=== PATIENT | female | born 1950 | race Caucasian/White ===

== ENCOUNTER → 2016-11-10 | Outpatient (CLI) | payer MEDICARE ==
--- NOTE | 2016-11-10 16:31 | US ---
EXAMINATION TYPE: US pelvic limited DATE OF EXAM: 11/10/2016 4:00 PM COMPARISON: NONE CLINICAL HISTORY: R35.0 Frequency of urination. Patient stated had prior bladder suspension. Order is for post void bladder volume. Bladder: wnl and bilateral ureteral jets were seen Post Void Bladder Volume: wnl as is < 50ml. IMPRESSION: NORMAL EXAMINATION.
== END | disposition home or self-care (01) ==
LOC: RADUSWWP 15:25
PROVIDERS: ATTEND Family Medicine
DX: R35.0 Frequency of micturition (principal)
CPT/HCPCS: 76857

== ENCOUNTER → 2016-11-19 | Outpatient (CLI) | payer MEDICARE ==
--- NOTE | 2016-11-20 13:18 | MM ---
Reason for exam: screening (asymptomatic). Last mammogram was performed 3 years and 2 months ago. History: Patient is postmenopausal. Family history of breast cancer in sister at age 55. Physical Findings: A clinical breast exam by your physician is recommended on an annual basis and results should be correlated with mammographic findings. MG Screening Mammo w CAD Bilateral CC and MLO view(s) were taken. Prior study comparison: September 13, 2013, bilateral digital screening mammo w/CAD. August 12, 2012, bilateral digital screening mammo w/CAD. There are scattered fibroglandular densities. There is no discrete abnormality. No significant changes when compared with prior studies. ASSESSMENT: Negative, BI-RAD 1 RECOMMENDATION: Routine screening mammogram of both breasts in 1 year.
== END | disposition home or self-care (01) ==
LOC: RADMAMWWP 13:10
PROVIDERS: ATTEND Family Medicine
DX: Z12.31 Encounter for screening mammogram for malignant neoplasm of breast (principal)

== ENCOUNTER → 2016-12-10 | Outpatient (CLI) | payer MEDICARE ==
[2016-12-10 13:59] LABS: Non-African American GFR(MDRD) >60 (>60 ml/min/1.73 sqM)
--- NOTE | 2016-12-10 21:45 | MR ---
EXAMINATION TYPE: MR brain wo/w con DATE OF EXAM: 12/10/2016 COMPARISON: NONE HISTORY: Loss of scent/taste TECHNIQUE: Multiplanar, multisequence images of the brain and brainstem is performed without and with IV contras t, utilizing 15 mL intravenous MultiHance . FINDINGS: Diffusion weighted images demonstrate no evidence of a recent infarct or other diffusion ab normality. There is no extra-axial fluid collection or significant white matter signal abnormality. Pituitary gland measures 7 mm in craniocaudal dimension but demonstrates abnormal enhancement suggest melina of a pituitary adenoma. There is no mass effect upon the optic chiasm or suprasellar extension. There is small cortical area of abnormal density in the right frontal parietal white matter is nonspe cific but likely in the basis small focal area of ischemia. Approximately 5 focal areas of abnormal signal in the white matter which are nondisplaced thickening. Changes of chronic sinusitis noted. Craniocervical junction maintained. There is abnormal enhancement involving the left cerebellopontine angle measuring 1.5 x 0.9 cm. IMPRESSION: 1. Pituitary gland measures demonstrates heterogeneous and abnormal enhancement suggestive of a pitui tary adenoma measuring approximately 11 x 9 mm. No suprasellar extension. 2. 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 Differential diagnosis would include a schwan noma or meningioma. Schwannoma with intracanalicular extension favored. 3. Nonspecific white matter changes most typical remote microvascular ischemia.
== END | disposition home or self-care (01) ==
LOC: RADMRIMAIN 13:41
PROVIDERS: ATTEND Otolaryngology
DX: G93.89 Other specified disorders of brain (principal); R90.82 White matter disease, unspecified; R93.0 Abnormal findings on diagnostic imaging of skull and head, not elsewhere classified; R43.9 Unspecified disturbances of smell and taste
CPT/HCPCS: 70553; 82565

== ENCOUNTER 2017-07-02 23:50 | Emergency (ER) | payer MEDICARE ==
[2017-07-02 23:56] VITALS: RESP 18
--- NOTE | 2017-07-03 00:32 | ED ---
URI HPI - General Chief Complaint: Upper Respiratory Infection Stated Complaint: Cough/Congestion Time Seen by Provider: 07/03/17 00:00 Source: patient, RN notes reviewed Mode of arrival: ambulatory Limitations: no limitations - History of Present Illness Initial Comments: This is a 66-year-old female who presents with complains of cold symptoms for the past week she's had no fevers no chills possibly some sweats she has a cough with yellow phlegm rhinorrhea she has a sore throat from coughing so hard. No overt chest pain no nausea vomiting or other symptoms report. MD Complaint: cough, rhinorrhea, nasal congestion - Related Data Previous Rx's Medication Instructions Recorded Albuterol Inhaler [Ventolin Hfa 2 puff INHALATION Q6HR PRN #1 07/03/17 Inhaler] inhaler Ciprofloxacin HCl [Cipro] 500 mg PO Q12HR #20 tablet 07/03/17 predniSONE 20 mg PO BID #10 tab 07/03/17 Allergies Allergy/AdvReac Type Severity Reaction Status Date / Time No Known Allergies Allergy Verified 07/02/17 23:51 Review of Systems ROS Statement: Those systems with pertinent positive or pertinent negative responses have been documented in the HPI. ROS Other: All systems not noted in ROS Statement are negative. Past Medical History Past Medical History: No Reported History History of Any Multi-Drug Resistant Organisms: None Reported Past Surgical History: Hysterectomy Additional Past Surgical History / Comment(s): bladder suspension Past Psychological History: No Psychological Hx Reported Smoking Status: Never smoker Past Alcohol Use History: Occasional Past Drug Use History: None Reported General Exam - General Exam Comments Initial Comments: This is a well-developed well-nourished awake alert oriented 3 female Limitations: no limitations General appearance: alert, in no apparent distress Head exam: Present: atraumatic, normocephalic, normal inspection Eye exam: Present: normal appearance, PERRL, EOMI. Absent: scleral icterus, conjunctival injection, periorbital swelling ENT exam: Present: other (Boggy swollen nasal mucosa with some clear drainage seen. TMs are within normal limits oropharynx is clear) Neck exam: Present: normal inspection, full ROM, other (No stridor JVD or bruits ). Absent: tenderness, meningismus, lymphadenopathy Respiratory exam: Present: normal lung sounds bilaterally. Absent: respiratory distress, wheezes, rales, rhonchi, stridor Cardiovascular Exam: Present: regular rate, normal rhythm, normal heart sounds. Absent: systolic murmur, diastolic murmur, rubs, gallop, clicks GI/Abdominal exam: Present: soft, normal bowel sounds. Absent: distended, tenderness, guarding, rebound, rigid Extremities exam: Present: normal inspection, full ROM, normal capillary refill. Absent: tenderness, pedal edema, joint swelling, calf tenderness Back exam: Present: normal inspection Neurological exam: Present: alert, oriented X3, CN II-XII intact Psychiatric exam: Present: normal affect, normal mood Skin exam: Present: warm, dry, intact, normal color. Absent: rash Course Vital Signs 07/02/17 07/03/17 23:51 00:40 Temperature 99.8 F H Pulse Rate 83 Respiratory 18 18 Rate Blood Pressure 140/87 O2 Sat by Pulse 94 L Oximetry Medical Decision Making - Medical Decision Making I did discuss findings with patient family members. The presentation is consistent with tracheobronchitis and by history intermittent bronchospasm. Patient will be placed on appropriate medication she'll be placed on an antibiotic as well as steroid exam an inhaler prescription will be also given to the patient. - Lab Data Lab Results 07/03/17 Range/Units 00:29 Influenza Type A RNA Not Detected (Not Detectd) Influenza Type B (PCR) Not Detected (Not Detectd) - Radiology Data Radiology results: report reviewed (I did review the imaging and reports no acute findings.), image reviewed Disposition Clinical Impression: Tracheobronchitis, Febrile illness, acute, Bronchospasm Disposition: HOME SELF-CARE Condition: Good Instructions: Acute Bronchitis (ED), Bronchospasm (ED) Prescriptions: Albuterol Inhaler [Ventolin Hfa Inhaler] 2 puff INHALATION Q6HR PRN #1 inhaler PRN Reason: Dyspnea Ciprofloxacin HCl [Cipro] 500 mg PO Q12HR #20 tablet predniSONE 20 mg PO BID #10 tab Referrals: Tutu Kay DO [Primary Care Provider] - 1-2 days
--- NOTE | 2017-07-03 00:54 | XR ---
EXAMINATION TYPE: XR chest 2V DATE OF EXAM: 07/03/2017 COMPARISON: NONE HISTORY: Cough TECHNIQUE: Frontal and lateral views of the chest are obtained. FINDINGS: Heart is normal. Lungs are clear. There is no heart failure. There is no pleural effusion. Bony thorax is intact. IMPRESSION: No active cardiopulmonary disease.
[2017-07-03] MEDS ORDERED: CIPROFLOXACIN HCL 500 MG TAB PO STA (01:01)
[2017-07-03] MEDS ORDERED: predniSONE 50 MG TAB PO STA (01:01)
[2017-07-03 01:19] VITALS: BP 143/80; PULSE 82; TEMP 99
== END 2017-07-03 01:19 | disposition home or self-care (01) ==
LOC: EC 23:50
DX: J40 Bronchitis, not specified as acute or chronic (principal); J98.01 Acute bronchospasm
CPT/HCPCS: 87502; 71046; 99283; J7512

== ENCOUNTER → 2018-09-16 | Outpatient (CLI) | payer MEDICARE ==
--- NOTE | 2018-09-16 10:28 | MM ---
Reason for exam: screening (asymptomatic). Last mammogram was performed 1 year and 10 months ago. History: Patient is postmenopausal. Family history of breast cancer in sister at age 55. Physical Findings: A clinical breast exam by your physician is recommended on an annual basis and results should be correlated with mammographic findings. MG 3D Screening Mammo W/Cad Bilateral CC and MLO view(s) were taken. Prior study comparison: November 19, 2016, bilateral MG screening mammo w CAD. There are scattered fibroglandular densities. No significant changes when compared with prior studies. ASSESSMENT: Negative, BI-RAD 1 RECOMMENDATION: Routine screening mammogram of both breasts in 1 year.
== END | disposition home or self-care (01) ==
LOC: RADMAMWWP 06:58
PROVIDERS: ATTEND Family Medicine
DX: Z12.31 Encounter for screening mammogram for malignant neoplasm of breast (principal)
CPT/HCPCS: 77063; 77067

== ENCOUNTER 2019-06-22 11:36 | Emergency (ER) | payer MEDICARE ==
[2019-06-22 11:39] VITALS: RESP 18
--- NOTE | 2019-06-22 11:52 | ED ---
Female Urogenital HPI - General Chief complaint: Urogenital Stated complaint: hematuria Time Seen by Provider: 06/22/19 11:39 Source: patient, RN notes reviewed, old records reviewed Mode of arrival: ambulatory Limitations: no limitations - History of Present Illness Initial comments: This is a 69-year-old female with a history of UTIs in the past also history of bladder suspension who states that about 10 days ago she had some blockage of her right hearing which should resolve she did have what she was an infection this did resolve but now she has 2 days of hematuria dark-colored urine urgency no overt fevers chills or sweats. She denies any abdominal or back pain at this time no nausea vomiting no other modifying factors. MD Complaint: dysuria - Related Data Previous Rx's Medication Instructions Recorded Albuterol Inhaler [Ventolin Hfa 2 puff INHALATION Q6HR PRN #1 07/03/17 Inhaler] inhaler Ciprofloxacin HCl [Cipro] 500 mg PO Q12HR #20 tablet 07/03/17 predniSONE 20 mg PO BID #10 tab 07/03/17 Cephalexin [Keflex] 500 mg PO Q6HR #40 cap 06/22/19 Phenazopyridine HCl [Pyridium] 100 mg PO TID #21 tab 06/22/19 Allergies Allergy/AdvReac Type Severity Reaction Status Date / Time erythromycin base Allergy Unknown Verified 06/22/19 11:40 Review of Systems ROS Statement: Those systems with pertinent positive or pertinent negative responses have been documented in the HPI. ROS Other: All systems not noted in ROS Statement are negative. Past Medical History Past Medical History: No Reported History History of Any Multi-Drug Resistant Organisms: None Reported Past Surgical History: Hysterectomy Additional Past Surgical History / Comment(s): bladder suspension Past Psychological History: No Psychological Hx Reported Smoking Status: Never smoker Past Alcohol Use History: Occasional Past Drug Use History: None Reported General Exam - General Exam Comments Initial Comments: This is a well-developed well-nourished awake alert oriented 3 female Limitations: no limitations General appearance: alert, in no apparent distress Head exam: Present: atraumatic, normocephalic, normal inspection Eye exam: Present: normal appearance, PERRL, EOMI. Absent: scleral icterus, c onjunctival injection, periorbital swelling ENT exam: Present: normal exam, mucous membranes moist Neck exam: Present: normal inspection, full ROM. Absent: tenderness, meningismus, lymphadenopathy Respiratory exam: Present: normal lung sounds bilaterally. Absent: respiratory distress, wheezes, rales, rhonchi, stridor Cardiovascular Exam: Present: regular rate, normal rhythm, normal heart sounds. Absent: systolic murmur, diastolic murmur, rubs, gallop, clicks GI/Abdominal exam: Present: soft, normal bowel sounds. Absent: distended, tenderness, guarding, rebound, rigid, bruit, pulsatile mass Rectal exam: Present: deferred Extremities exam: Present: normal inspection, full ROM, normal capillary refill. Absent: tenderness, pedal edema, joint swelling, calf tenderness Back exam: Present: normal inspection, CVA tenderness (R) (Mild right CVA tenderness to percussion) Neurological exam: Present: alert, oriented X3, CN II-XII intact Psychiatric exam: Present: normal affect, normal mood Skin exam: Present: warm, dry, intact, normal color. Absent: rash Course Vital Signs 06/22/19 11:37 Temperature 98.8 F Pulse Rate 85 Respiratory 18 Rate Blood Pressure 144/85 O2 Sat by Pulse 98 Oximetry - Reevaluation(s) Reevaluation #1: 06/22/19 11:52 I did observe the urine specimen is dark and cloudy Medical Decision Making - Medical Decision Making Patient's presentation is consistent with urinary tract infection versus or alcohol by the UA. Patient be placed on appropriate medications we did discuss also increase fluid intake. - Lab Data Lab Results 06/22/19 Range/Units 11:49 Urine Color Light Red Urine Appearance Turbid H (Clear) Urine pH 5.5 (5.0-8.0) Ur Specific [place] 1.018 (1.001-1.035) Urine Protein 2+ H (Negative) Urine Glucose (UA) Negative (Negative) Urine Ketones Trace H (Negative) Urine Blood Large H (Negative) Urine Nitrite Negative (Negative) Urine Bilirubin Negative (Negative) Urine Urobilinogen <2.0 (<2.0) mg/dL Ur Leukocyte Esterase Large H (Negative) Urine RBC >182 H (0-5) /hpf Urine WBC >182 H (0-5) /hpf Urine WBC Clumps Many H (None) /hpf Urine Bacteria Occasional H (None) /hpf Urine Mucus Occasional H (None) /hpf Disposition Clinical Impression: Urinary tract infection Disposition: HOME SELF-CARE Condition: Good Instructions (If sedation given, give patient instructions): Urinary Tract Infection in Women (ED) Prescriptions: Cephalexin [Keflex] 500 mg PO Q6HR #40 cap Phenazopyridine HCl [Pyridium] 100 mg PO TID #21 tab Is patient prescribed a controlled substance at d/c from ED?: No Referrals: Tutu Kay DO [Primary Care Provider] - 1-2 days
[2019-06-22 12:09] LABS: Appearance,Urine Turbid (Clear); Bacteria,Urine Occasional /hpf; Bilirubin,Urine Negative (Negative); Blood,Urine Large (Negative); Color,Urine Light Red; Glucose,Urine (UA) Negative (Negative); Ketones,Urine Trace (Negative); Leukocyte Esterase,Urine Large (Negative); Mucus,Urine Occasional /hpf; Nitrite,Urine Negative (Negative); PH, Urine 5.5 (5.0-8.0); Protein,Urine 2+ (Negative); RBC,Urine >182 /hpf (0-5); Specific Gravity,Urine 1.018 (1.001-1.035); Urobilinogen,Urine <2.0 mg/dL (<2.0); WBC,Urine >182 /hpf (0-5)
[2019-06-22 13:16] VITALS: BP 138/78; PULSE 82; TEMP 98
== END 2019-06-22 13:14 | disposition home or self-care (01) ==
LOC: EC 11:36
DX: N39.0 Urinary tract infection, site not specified (principal); Z88.1 Allergy status to other antibiotic agents; Z98.890 Other specified postprocedural states
CPT/HCPCS: 81001; 87086; 99284

== ENCOUNTER → 2019-07-25 | Outpatient (CLI) | payer MEDICARE ==
--- NOTE | 2019-07-25 13:38 | MR ---
EXAMINATION TYPE: MR iac wo/w con DATE OF EXAM: 07/25/2019 COMPARISON: MRI of the brain dated 12/10/2016 HISTORY: Acoustic nerve disorder, Left acoustic neuroma TECHNIQUE: Multiplanar, multisequence images of the brain and brainstem is performed without and with IV contras t, utilizing 7 mL intravenous Gadavist . FINDINGS: Diffusion weighted images demonstrate no evidence of a recent infarct or other diffusion ab normality. There is no extra-axial fluid collection. Mild burden nonspecific white matter change is redemonstrated as few scattered foci of T2/FLAIR hyperintensity. The ventricular system and cisternal spaces are symmetrically prominent compatible with age-related volume loss. The known pituitary gland mass is stable in size measuring approximately 7 x 8 mm and previously richard uring 7 mm on the exam of 12/10/2016. The craniocervical junction appears within normal limits. The du ral venous sinuses appear patent. The visualized sinuses are clear other than mild mucosal thickening in the ethmoid sinuses and the globes are intact. There is a left cerebellar pontine angle mass compatible with this patient's known history of a left acoustic neuroma with intracanalicular extension. This measured approximately 11 x 9 mm on the prior exam and currently measures 13 x 8 mm. This is similar heterogenous enhancement in the appearance of a dural tail. IMPRESSION: 1. Very minimal interval growth of the left acoustic neuroma with intracanalicular extension measurin g 13.8 mm on the current exam and previously measuring 11.9 mm on the exam of 12/10/2016. 2. Stable pituitary gland mass, again likely a pituitary adenoma. 3. Similar mild burden nonspecific white matter change, likely on the basis of microangiopathy.
== END | disposition home or self-care (01) ==
LOC: RADMRIMAIN 10:59
PROVIDERS: ATTEND Otolaryngology
DX: D33.3 Benign neoplasm of cranial nerves (principal)
CPT/HCPCS: 70553; A9585

== ENCOUNTER → 2020-08-21 | Outpatient (CLI) | payer MEDICARE ==
--- NOTE | 2020-08-21 17:41 | MR ---
EXAMINATION TYPE: MR iac wo/w con DATE OF EXAM: 08/21/2020 COMPARISON: 07/25/2019 HISTORY: Follow up, acoustic nerve disorder, left acoustic neuroma. CONTRAST: Performed utilizing 7 mL intravenous Gadavist gadolinium contrast. TECHNIQUE: Multiplanar, multiecho imaging on a 3.0 Makenzie magnet is performed through the brain. Atte ntion is paid to the internal auditory canals with thin section imaging. Postcontrast imaging is per formed through the internal auditory canals. Findings: craniovertebral junction is normal. Optic chiasm appears normal. Diffusion-weighted imaging is performed. No suspicious hyperintensity is present to suggest an acute intracranial infarct or acute ischemic area. There is a small hypoechoic area in right frontal lobe. Series 401 image 20. This may be a small 4 mm cavernous hemangioma. This was present previously. There are a few small subcortical white matter changes, likely on the basis of chronic white matter i schemic change present previously. Thin section imaging is performed through the internal auditory canals and cerebellar pontine angles. The enhancement seen left cerebellar pontine angle mass with extension into the intracanalicular port ion is again evident. Based on current measurements this measures 1.42 x 0.55 cm. Previous measuremen t 1.32 x 0.79. Hypointense mass within the pituitary currently measures 0.9 x 1.0 cm. This has enlarged from the pre vious measurement of 0.8 x 0.7 cm. Subtle displacement of the pituitary stalk to the right may be pre sent. No optic chiasm contact is identified. Minimal contact with the left carotid siphon may be pres ent. Postcontrast imaging was performed. No suspicious enhancement is evident within the visualized port ions of the brain away from the cerebellopontine angle. IMPRESSIONS: 1. Slight elongation of the left intracanalicular acoustic neuroma. 2. Slight enlargement of the hypointense ureteric mass
== END ==
LOC: RADMRIMAIN 10:33
PROVIDERS: ATTEND Otolaryngology
DX: D33.3 Benign neoplasm of cranial nerves (principal)
CPT/HCPCS: 70553; A9585

== ENCOUNTER → 2021-06-19 | Outpatient (CLI) | payer MEDICARE ==
--- NOTE | 2021-06-24 12:00 | MM ---
Reason for exam: screening (asymptomatic). Last mammogram was performed 2 years and 9 months ago. History: Patient is postmenopausal. Family history of breast cancer in sister at age 55. Physical Findings: A clinical breast exam by your physician is recommended on an annual basis and results should be correlated with mammographic findings. MG 3D Screening Mammo W/Cad Bilateral CC and MLO view(s) were taken. Prior study comparison: September 16, 2018, bilateral MG 3d screening mammo w/cad. November 19, 2016, bilateral MG screening mammo w CAD. There are scattered fibroglandular densities. No significant changes when compared with prior studies. ASSESSMENT: Negative, BI-RAD 1 RECOMMENDATION: Routine screening mammogram of both breasts in 1 year.
== END | disposition home or self-care (01) ==
LOC: RADMAMWWP 09:50
PROVIDERS: ATTEND Family Medicine
DX: Z12.31 Encounter for screening mammogram for malignant neoplasm of breast (principal); Z80.3 Family history of malignant neoplasm of breast; Z78.0 Asymptomatic menopausal state
CPT/HCPCS: 77063; 77067

== ENCOUNTER → 2021-08-14 | Outpatient (CLI) | payer MEDICARE ==
--- NOTE | 2021-08-14 17:37 | BD ---
EXAMINATION TYPE: Axial Bone Density DATE OF EXAM: 08/14/2021 COMPARISON: 05/15/2009 CLINICAL HISTORY: Height: 61.5 IN Weight: 144 LBS FRAX RISK QUESTIONS: History of Fracture in Adulthood: LT FOREARM AGE 71, RT FOOT AGE 70, JAW AGE 48 RISK FACTORS HISTORY OF: Active: YES Postmenopausal woman: PARTIAL HYST AGE 48 MEDICATIONS: Additional Medications: CALCIUM, VIT D, OMEPRAZOLE, HAIR SKIN, AND NAILS, MULTI VIT, STATIN EXAM MEASUREMENTS: Bone mineral densitometry was performed using the [employer] System. Bone mineral density as measured about the Lumbar spine is: ----- L1-L4(G/cm2): 0.905 T Score Values are as follows: ----- L2: -2.7 ----- L3: -2.4 ----- L4: -2.2 ----- L1-L4: -2.3 Bone mineral density has: Decreased -8.7% since study of: 05/15/2009 Bone mineral density about the R hip (g/cm2): 0.709 Bone mineral density about the L hip (g/cm2): 0.761 T Score values are as follows: -----R Neck: -2.4 -----L Neck: -2.0 -----R Total: -1.9 -----L Total: -1.3 Bone mineral density has: Increased 0.2% since study of: 05/15/2009 IMPRESSION: Osteopenia (T Score between -2.5 and -1). There is slightly increased risk of fracture and the patient may be considered for treatment. Re-Screen 2-5 years. NOTE: T-SCORE=SD OF THE YOUNG ADULT MEAN.
== END | disposition home or self-care (01) ==
LOC: RADBDWWP 07:41
PROVIDERS: ATTEND Family Medicine
DX: M85.89 Other specified disorders of bone density and structure, multiple sites (principal); Z87.310 Personal history of (healed) osteoporosis fracture
CPT/HCPCS: 77080

== ENCOUNTER → 2022-01-03 | Outpatient (CLI) | payer MEDICARE ==
--- NOTE | 2022-01-03 17:04 | MR ---
EXAMINATION TYPE: MR brain and iac wo/w con DATE OF EXAM: 01/03/2022 3:21 PM COMPARISON: 08/21/2020 HISTORY: Hearing loss TECHNIQUE: Multiplanar and multispin-echo imaging of the brain was performed both before and after the administr ation of contrast. High-resolution images are obtained of the internal auditory canals performed uti lizing 6.5 mL intravenous Gadavist contrast. The ventricles, basal cisterns and sulci overlying the cerebral convexities are within normal limits. There is no evidence for midline shift or mass effect. Acute intracranial hemorrhage or extra-axial collection is not evident. There is mild periventricular white matter ischemic demyelination and a few small deep white matter i nsults. High-resolution imaging of the internal auditory canals fails demonstrate evidence for an enhancing a coustic schwannoma or cerebellopontine cistern angle mass. Again noted is a left-sided acoustic schwannoma with intracanalicular extension. Current measurement of 1.3 cm x 0.5 cm versus 1.4 x 8.5 cm previously. No new lesions seen. Left-sided pituitary hypointense nonenhancing lesion measures 9 x 8 mm versus a 9 x 10 mm previously. There is convexly into the suprasellar region mild displacement of the pituitary stalk from left to right. The paranasal sinuses and mastoid air cells are well-aerated. IMPRESSION: 1. Stable left-sided acoustic schwannoma. 2. Stable pituitary lesion
== END | disposition home or self-care (01) ==
LOC: RADMRIMAIN 14:30
PROVIDERS: ATTEND Otolaryngology
DX: H93.3X2 Disorders of left acoustic nerve (principal)
CPT/HCPCS: 70553; A9585

== ENCOUNTER → 2023-02-12 | Outpatient (CLI) | payer MEDICARE ==
--- NOTE | 2023-02-13 10:06 | MM ---
Reason for Exam: Screening (asymptomatic). Last mammogram was performed 1 year(s) and 8 month(s) ago. Patient History: Menarche at age 11. First Full-Term at age 16. Hysterectomy at age 54. Postmenopausal. Sister had breast cancer, age 55. Risk Values: Eileen 5 year model risk: 3.3%. NCI Lifetime model risk: 7.5%. Prior Study Comparison: 11/19/2016 Bilateral Screening Mammogram, [facility]. 09/16/2018 Bilateral Screening Mammogram, [facility]. 06/19/2021 Bilateral Screening Mammogram, [facility]. Tissue Density: There are scattered fibroglandular densities. Findings: Analyzed By CAD. There is no suspicious group of microcalcifications or new suspicious mass in either breast. Overall Assessment: Negative, BI-RAD 1 Management: Screening Mammogram of both breasts in 1 year. See note below in regards to patient's increased five-year Eileen score. Patient should continue monthly self-breast exams. A clinical breast exam by your physician is recommended on an annual basis. This exam should not preclude additional follow-up of suspicious palpable abnormalities. Note on Eileen scores and lifetime risk: 1. A Eileen score greater than 3% is considered moderate risk. If this is the case, consider specialist referral to assess eligibility for a risk reducing agent. 2. If overall lifetime risk for the development of breast cancer is 20% or higher, the patient may qualify for future screening with alternating mammogram and breast MRI. Electronically signed and approved by: Monae Omer M.D. Radiologist
== END | disposition home or self-care (01) ==
LOC: RADMAMWWP 15:44
PROVIDERS: ATTEND Family Medicine
DX: Z12.31 Encounter for screening mammogram for malignant neoplasm of breast (principal); Z78.0 Asymptomatic menopausal state; Z80.3 Family history of malignant neoplasm of breast
CPT/HCPCS: 77063; 77067